=== PATIENT | female | born 1980 | race Caucasian/White ===

== ENCOUNTER 2016-10-13 13:50 | Outpatient (CLI) | payer OTHER ==
--- NOTE | 2016-10-13 16:43 | XRAY Report ---
THREE VIEW LEFT FOURTH AND FIFTH FINGERS: 10/13/2016 CLINICAL INDICATION: Pain. FINDINGS: AP, lateral, and oblique views of the left 4th and 5th fingers were obtained. Imaging of t he 4th finger is limited by jewelry. There is an oblique fracture of the proximal shaft of the 5th me tacarpal, minimally displaced. No other fracture is appreciated. The joint spaces are preserved. IMPRESSION: OBLIQUE FRACTURE OF THE 5TH METACARPAL SHAFT, MINIMALLY DISPLACED. JOB #: [id number] EXT JOB #:[id number]
== END 2016-10-13 13:51 | disposition home or self-care (01) ==
LOC: DI 13:50
PROVIDERS: ATTEND Internal Medicine
DX: S62.327A Displaced fracture of shaft of fifth metacarpal bone, left hand, initial encounter for closed fracture (principal)
CPT/HCPCS: 73140

== ENCOUNTER 2021-01-18 13:56 | Outpatient (CLI) | payer OTHER ==
--- NOTE | 2021-01-19 08:19 | XRAY Report ---
PROCEDURE: Cervical Spine 2 View INDICATIONS: FALL FROM HORSE, RADICULOPATHY IN L ARM TECHNIQUE: 3 view(s) of the cervical spine were acquired. COMPARISON: None FINDINGS: Bones: No fractures or dislocations to the T1 level. The lateral masses of C1 appear intact on the odontoid view. No suspicious bony lesions. Loss of the normal cervical lordosis. Moderate disc heig ht loss at the C4-C5 and C5-C6 levels where there are endplate osteophytes. Mild multilevel uncoverte bral hypertrophy. Soft tissues: No prevertebral soft tissue swelling. IMPRESSION: Loss of lordosis and multilevel spondylosis. Reviewed by: RONALD Alexander on 01/19/2021 8:18 AM PDT Approved by: Ata Andrea MD on 01/19/2021 8:18 AM PDT Station ID: [id number]
== END 2021-01-18 23:59 | disposition home or self-care (01) ==
LOC: DI.N 13:56
PROVIDERS: ATTEND Physician Assistant Medical
DX: M47.22 Other spondylosis with radiculopathy, cervical region (principal)

== ENCOUNTER 2023-03-28 08:00 | Outpatient (CLI) | payer OTHER ==
--- NOTE | 2023-03-28 16:29 | XRAY Report ---
PROCEDURE: Hand 3 View LT INDICATIONS: LEFT 4TH MC FRACTURE TECHNIQUE: 3 views of the hand(s) acquired. COMPARISON: Left hand radiographs 02/21/2023. FINDINGS: Bones: Callus formation about the fourth metacarpal fracture. No dislocations. No suspicious bony l esions. Soft tissues: No suspicious soft tissue calcifications or masses. IMPRESSION: Ongoing healing and bony remodeling at the fourth metacarpal fracture. Reviewed by: Shukri Dougherty MD on 03/28/2023 4:28 PM PDT Approved by: Shukri Dougherty MD on 03/28/2023 4:28 PM PDT Station ID: [id number]
== END 2023-03-28 23:59 | disposition home or self-care (01) ==
LOC: DI.WOS 08:00
PROVIDERS: ATTEND Orthopaedic Surgery
DX: S62.355D Nondisplaced fracture of shaft of fourth metacarpal bone, left hand, subsequent encounter for fracture with routine healing (principal)